=== PATIENT | male | born 1975 | race African-American/Black ===

== ENCOUNTER 2017-08-11 03:34 | Inpatient (IN) ==
[2017-08-11] MEDS ORDERED: ALBUTEROL 2.5 MG/3 ML NEB RESP TX STA (04:28)
[2017-08-11] MEDS ORDERED: LABETALOL 20 MG/4 ML SYRINGE IV STA (04:28)
[2017-08-11] MEDS ORDERED: methylPREDNISolone SOD SUC 125 MG/2 ML VIAL IV STA (04:28)
[2017-08-11] MEDS ORDERED: LABETALOL 20 MG/4 ML SYRINGE IV ONE (04:52)
[2017-08-11] MEDS ORDERED: methylPREDNISolone SOD SUC 125 MG/2 ML VIAL ONE (04:53)
[2017-08-11 05:10] LABS: Basophils % 0.6 % (0.0-0.8); Eosinophils # 0.1 10*3/uL (0.0-0.87); Hemoglobin 14.8 GM/DL (14.0-18.0); Immature Granulocytes % 0.4 %; Immature Granulocytes Absolute 0.02 #; Lymphocytes # 1.9 10*3/uL (1.4-4.0); Lymphocytes % 36.9 % (21.2-54.2); Mean Corpuscular HGB Conc 34.4 GM/DL (32-36); Mean Corpuscular Hemoglobin 30 PG (27-34); Mean Corpuscular Volume 86.5 FL (87-102); Mean Platelet Volume 8.8 FL (9.6-12.0); Monocytes # 0.7 10*3/uL (0.11-0.8); Monocytes % 13.4 % (1.7-12.7); Neutrophils # 2.5 10*3/uL (1.4-7.4); Neutrophils % 47.7 % (38.7-73.9); Platelet Count 210 T/CUMM (130-400); Red Blood Count 4.97 MC/CUMM (3.8-5.5); Red Cell Distribution Width 15.4 % (9.3-17.3); White Blood Count 5.2 T/CUMM (4-12)
[2017-08-11 05:31] LABS: Albumin 2.9 G/DL (3.4-5.0); Bilirubin,Total 1.3 MG/DL (0.2-1.0); Calcium 8.5 MG/DL (8.5-10.1); Magnesium 1.8 MG/DL (1.8-2.4); Potassium 2.9 MMOL/L (3.5-5.1); Total Protein 7.6 G/DL (6.4-8.3)
[2017-08-11 05:39] LABS: Hypochromasia 1+
[2017-08-11 05:40] LABS: Platelet Estimate Adequate
[2017-08-11] MEDS ORDERED: guaiFENesin/DM ER 600-30 MG TABLET PO PRN (06:12)
[2017-08-11] MEDS ORDERED: ACETAMINOPHEN 325 MG TABLET PO PRN (06:12)
[2017-08-11] MEDS ORDERED: ZALEPLON 5 MG CAPSULE PO PRN (06:12)
[2017-08-11] MEDS ORDERED: ONDANSETRON 4 MG/2 ML VIAL IV PRN (06:12)
[2017-08-11] MEDS ORDERED: ALBUTEROL 2.5 MG/3 ML NEB RESP TX PRN (06:19)
[2017-08-11 07:56] LABS: Hepatitis A Ab IgM Quant 0.07 Index; Hepatitis A Ab IgM Result Negative (Negative); Hepatitis B Core IgM Quant 0.16 Index; Hepatitis B Core IgM Result Negative (Negative); Hepatitis B Surface Ag Quant < 0.10 Index; Hepatitis B Surface Ag Result Negative (Negative); Hepatitis C Virus Ab Quant 0.08 Index; Hepatitis C Virus Ab Result Negative (Negative)
[2017-08-11] MEDS: ENOXAPARIN 40 MG/0.4 ML SYRINGE SUBCUT SCH (08:26)
[2017-08-11] MEDS: metOLazone 5 MG TABLET PO SCH (08:26)
[2017-08-11] MEDS: CHLORTHALIDONE 25 MG TABLET PO SCH (08:26)
[2017-08-11] MEDS: POTASSIUM CHLORIDE 20 MEQ TABLET PO SCH ×2 (08:26→21:24)
[2017-08-11] MEDS: PANTOPRAZOLE 40 MG TABLET PO SCH (08:26)
[2017-08-11] MEDS: BUDESONIDE/FORMOTEROL 160-4.5 INHALER 6 GM INH SCH ×2 (08:29→21:25)
[2017-08-11] MEDS: ATENOLOL 100 MG TABLET PO SCH (08:29)
[2017-08-11] MEDS: ALBUTEROL/IPRATROPIUM 3 ML NEB RESP TX SCH ×3 (09:11→20:41)
[2017-08-11] MEDS ORDERED: POTASSIUM CHLORIDE INJ 60 MEQ in SODIUM CHLORIDE 0.9% 1,000 ML IV ONE (09:30)
[2017-08-11] MEDS: methylPREDNISolone SOD SUC 125 MG/2 ML VIAL IV SCH ×3 (10:57→23:00)
[2017-08-11 12:17] LABS: Apearance,Urine Clear (Clear); Bilirubin,Urine Negative (Negative); Blood, Urine Small mg/dL (Negative); Glucose,Urine (UA) Negative (Negative); Ketones,Urine 100 mg/dL (Negative); Nitrite,Urine Negative (Negative); Protein,Urine 30 MG/DL; Urine Color Yellow (Yellow); Urine Specific Gravity 1.005 (1.001-1.035); Urine Urobilinogen 0.2 EU/DL (0.2-1.0)
[2017-08-11 12:29] LABS: RBC,Urine 0-5 /HPF (0-4); Squamous Epithelial Cell,Urine Rare /HPF (0-10)
[2017-08-12] MEDS: ALBUTEROL/IPRATROPIUM 3 ML NEB RESP TX SCH ×2 (00:26→07:38)
[2017-08-12] MEDS: methylPREDNISolone SOD SUC 125 MG/2 ML VIAL IV SCH ×2 (04:56→10:40)
[2017-08-12 05:14] VITALS: BP 116/65
[2017-08-12 06:31] LABS: Basophils % 0.1 % (0.0-0.8); Hematocrit 44.1 VOL% (42.0-52.0); Hemoglobin 15.2 GM/DL (14.0-18.0); Immature Granulocytes % 0.7 %; Immature Granulocytes Absolute 0.05 #; Lymphocytes # 1.4 10*3/uL (1.4-4.0); Lymphocytes % 17.9 % (21.2-54.2); Mean Corpuscular HGB Conc 34.5 GM/DL (32-36); Mean Corpuscular Hemoglobin 30 PG (27-34); Mean Platelet Volume 9.6 FL (9.6-12.0); Monocytes # 0.4 10*3/uL (0.11-0.8); Monocytes % 5.3 % (1.7-12.7); Neutrophils # 5.7 10*3/uL (1.4-7.4); Platelet Count 297 T/CUMM (130-400); Red Blood Count 5.01 MC/CUMM (3.8-5.5); Red Cell Distribution Width 15.4 % (9.3-17.3); White Blood Count 7.6 T/CUMM (4-12)
[2017-08-12 07:20] LABS: Albumin 3.2 G/DL (3.4-5.0); Bilirubin,Total 1.4 MG/DL (0.2-1.0); Calcium 9.3 MG/DL (8.5-10.1); Potassium 3.7 MMOL/L (3.5-5.1); Total Protein 7.9 G/DL (6.4-8.3)
[2017-08-12] MEDS: POTASSIUM CHLORIDE 20 MEQ TABLET PO SCH (10:39)
[2017-08-12] MEDS: metOLazone 5 MG TABLET PO SCH (10:39)
[2017-08-12] MEDS: ENOXAPARIN 40 MG/0.4 ML SYRINGE SUBCUT SCH (10:40)
[2017-08-12] MEDS: ATENOLOL 100 MG TABLET PO SCH (10:40)
[2017-08-12] MEDS: BUDESONIDE/FORMOTEROL 160-4.5 INHALER 6 GM INH SCH (10:40)
[2017-08-12] MEDS: CHLORTHALIDONE 25 MG TABLET PO SCH (10:40)
[2017-08-12] MEDS: PANTOPRAZOLE 40 MG TABLET PO SCH (10:40)
== END 2017-08-12 11:45 | disposition home or self-care (01) | DRG 141 ==
LOC: EDBD → EDUNIT# → N.ED 03:34 → N.EDINP 06:15 → N.2E 06:46
PROVIDERS: ADMIT Family Medicine; ATTEND Family Medicine

== ENCOUNTER 2019-06-28 09:42 | Observation (INO) ==
[2019-06-28] MEDS ORDERED: ASPIRIN 325 MG TABLET PO STA (10:19)
[2019-06-28 10:26] LABS: Basophils # 0.1 10*3/uL (0.0-0.2); Basophils % 0.7 % (0.0-0.8); Eosinophils # 0.4 10*3/uL (0.0-0.87); Eosinophils % 5.1 % (0.00-10.9); Hemoglobin 13.2 GM/DL (14.0-18.0); Immature Granulocytes % 1.2 %; Immature Granulocytes Absolute 0.08 #; Lymphocytes # 2.2 10*3/uL (1.4-4.0); Lymphocytes % 32.1 % (21.2-54.2); Mean Corpuscular HGB Conc 33.8 GM/DL (32-36); Mean Corpuscular Volume 93.8 FL (87-102); Mean Platelet Volume 8.8 FL (9.6-12.0); Monocytes % 8.5 % (1.7-12.7); Neutrophils % 52.4 % (38.7-73.9); Platelet Count 213 T/CUMM (130-400); Red Blood Count 4.16 MC/CUMM (3.8-5.5); Red Cell Distribution Width 16.3 % (9.3-17.3); White Blood Count 6.8 T/CUMM (4-12)
[2019-06-28 11:10] LABS: Albumin 2.8 G/DL (3.4-5.0); Bilirubin,Total 0.9 MG/DL (0.2-1.0); Calcium 8.7 MG/DL (8.5-10.1); Osmolality,Calculated 273.5 MOS/KG (273-304); Total Protein 8.6 G/DL (6.4-8.3)
[2019-06-28] MEDS ORDERED: ENOXAPARIN 30 MG/0.3 ML SYRINGE SUBCUT STA (11:30)
[2019-06-28] MEDS ORDERED: ONDANSETRON 4 MG/2 ML VIAL IV PRN (12:05)
[2019-06-28] MEDS ORDERED: DEXTROSE 50% 25 GM/50 ML VIAL IV PRN (12:05)
[2019-06-28] MEDS ORDERED: DOCUSATE SODIUM 100 MG CAPSULE PO PRN (12:05)
[2019-06-28] MEDS ORDERED: ACETAMINOPHEN 325 MG TABLET PO PRN (12:05)
[2019-06-28] MEDS ORDERED: GLUCAGON 1 MG VIAL IM PRN (12:05)
[2019-06-28] MEDS ORDERED: BUDESONIDE/FORMOTEROL 160-4.5 INHALER 6 GM INH PRN (12:42)
[2019-06-28] MEDS ORDERED: ALBUTEROL/IPRATROPIUM 3 ML NEB RESP TX PRN (12:43)
[2019-06-28] MEDS ORDERED: NITROGLYCERIN SL 0.4 MG TABLET SL PRN (12:57)
[2019-06-28] MEDS ORDERED: FUROSEMIDE 100 MG/10 ML VIAL IV ONE (12:59)
[2019-06-28] MEDS: METOPROLOL TARTRATE 25 MG TABLET PO SCH ×2 (13:15→20:31)
[2019-06-28 15:05] LABS: Risk Ratio 3.55; Thyroid Stimulating Hormone 1.93 uIU/ml (0.358-3.74); VLDL CHOLESTEROL 19.8 MG/DL
[2019-06-28] MEDS ORDERED: FUROSEMIDE 40 MG/4 ML VIAL IV SCH (16:00)
[2019-06-28] MEDS: INSULIN LISPRO 100 UNIT/ML SUBCUT SCH (17:34)
[2019-06-28] MEDS: NICOTINE 21 MG/24 HR PATCH TRANSDERM SCH (17:37)
[2019-06-28] MEDS: GABAPENTIN 300 MG CAPSULE PO SCH ×2 (17:37→20:31)
[2019-06-29] MEDS: INSULIN LISPRO 100 UNIT/ML SUBCUT SCH ×2 (01:00→07:21)
[2019-06-29 05:56] LABS: Basophils # 0.1 10*3/uL (0.0-0.2); Basophils % 0.6 % (0.0-0.8); Eosinophils # 0.3 10*3/uL (0.0-0.87); Eosinophils % 3.8 % (0.00-10.9); Hematocrit 42.9 VOL% (42.0-52.0); Hemoglobin 14.5 GM/DL (14.0-18.0); Immature Granulocytes % 0.8 %; Immature Granulocytes Absolute 0.06 #; Lymphocytes # 1.7 10*3/uL (1.4-4.0); Lymphocytes % 20.9 % (21.2-54.2); Mean Corpuscular HGB Conc 33.8 GM/DL (32-36); Mean Corpuscular Volume 91.9 FL (87-102); Mean Platelet Volume 8.6 FL (9.6-12.0); Monocytes % 10.1 % (1.7-12.7); Neutrophils % 63.8 % (38.7-73.9); Platelet Count 267 T/CUMM (130-400); Red Blood Count 4.67 MC/CUMM (3.8-5.5); Red Cell Distribution Width 16.5 % (9.3-17.3)
[2019-06-29 06:19] LABS: Calcium 8.7 MG/DL (8.5-10.1); Osmolality,Calculated 273.5 MOS/KG (273-304)
[2019-06-29 08:03] VITALS: BP 133/64
[2019-06-29] MEDS: NICOTINE 21 MG/24 HR PATCH TRANSDERM SCH (08:28)
[2019-06-29] MEDS: METOPROLOL TARTRATE 25 MG TABLET PO SCH (08:30)
[2019-06-29] MEDS: GABAPENTIN 300 MG CAPSULE PO SCH (08:31)
[2019-06-29] MEDS ORDERED: PANTOPRAZOLE 40 MG TABLET PO SCH (09:00)
[2019-06-29] MEDS ORDERED: ENOXAPARIN 40 MG/0.4 ML SYRINGE SUBCUT SCH (09:00)
[2019-06-29] MEDS ORDERED: LISINOPRIL 10 MG TABLET PO SCH ×2 (09:00)
[2019-06-29] MEDS ORDERED: ASPIRIN CHEW 81 MG TABLET PO SCH (09:00)
[2019-06-29] MEDS ORDERED: FUROSEMIDE 40 MG/4 ML VIAL IV SCH (09:00)
== END 2019-06-29 12:15 | disposition home or self-care (01) ==
LOC: EDUNIT# → EDBD → N.ED 09:42 → N.EDINP 09:42 → SUATTDRO 12:03 → N.4E 15:15
PROVIDERS: ADMIT Internal Medicine Nephrology; ATTEND Internal Medicine

== ENCOUNTER 2020-09-05 20:26 | Inpatient (IN) ==
[2020-09-05 22:05] LABS: Basophils % 0.3 % (0.0-0.8); Eosinophils # 0.3 10*3/uL (0.0-0.87); Eosinophils % 3.2 % (0.00-10.9); Hematocrit 33.3 VOL% (42.0-52.0); Hemoglobin 11.2 GM/DL (14.0-18.0); Immature Granulocytes % 1.3 %; Lymphocytes # 1.9 10*3/uL (1.4-4.0); Lymphocytes % 24.4 % (21.2-54.2); Mean Corpuscular HGB Conc 33.6 GM/DL (32-36); Mean Corpuscular Volume 98.5 FL (87-102); Mean Platelet Volume 8.4 FL (9.6-12.0); Monocytes % 9.3 % (1.7-12.7); NRBC # 0.03 10*3/uL; Neutrophils % 61.5 % (38.7-73.9); Platelet Count 285 T/CUMM (130-400); Red Blood Count 3.38 MC/CUMM (3.8-5.5); Red Cell Distribution Width 19.5 % (9.3-17.3); White Blood Count 7.8 T/CUMM (4-12)
[2020-09-05 22:30] LABS: Troponin I < 0.015 NG/ML (0.00-0.045)
[2020-09-05 22:38] LABS: Albumin 2.7 G/DL (3.4-5.0); Bilirubin,Total 1.6 MG/DL (0.2-1.0); Calcium 8.4 MG/DL (8.5-10.1); Osmolality,Calculated 272.7 MOS/KG (273-304); Potassium 3.2 MMOL/L (3.5-5.1); Total Protein 7.8 G/DL (6.4-8.9)
[2020-09-05] MEDS ORDERED: SODIUM CHLORIDE 0.9% 1,000 ML IV STA (22:43)
[2020-09-05] MEDS ORDERED: POTASSIUM CHLORIDE 20 MEQ TABLET PO STA (22:44)
[2020-09-05] MEDS ORDERED: MAGNESIUM SULF RIDER 2 GM in PREMIX 1 EACH IV STA (22:44)
[2020-09-05] MEDS ORDERED: VANCOMYCIN INJ 1,000 MG in SODIUM CHLORIDE 0.9% 250 ML IV STA (22:53)
[2020-09-05] MEDS ORDERED: PIPERACILLIN/TAZOBACTAM 3,375 MG in SODIUM CHLORIDE 0.9% 100 ML IV STA (22:53)
[2020-09-05] MEDS ORDERED: SODIUM CHLORIDE 0.9% 1,000 ML IV ONE (23:12)
[2020-09-05] MEDS ORDERED: SIMETHICONE CHEW 125 MG TABLET PO PRN (23:13)
[2020-09-05] MEDS ORDERED: ONDANSETRON 4 MG/2 ML VIAL IV PRN (23:13)
[2020-09-05] MEDS ORDERED: guaiFENesin/DM ER 600-30 MG TABLET PO PRN (23:13)
[2020-09-05] MEDS ORDERED: GLUCAGON 1 MG VIAL IM PRN ×2 (23:13)
[2020-09-05] MEDS ORDERED: ALUMINUM/MAGNES/SIMETH MAX STR 30 ML UDCUP PO PRN (23:13)
[2020-09-05] MEDS ORDERED: DEXTROSE 50% 25 GM/50 ML VIAL IV PRN ×2 (23:13)
[2020-09-05] MEDS ORDERED: diphenhydrAMINE CAP 25 MG CAPSULE PO PRN (23:13)
[2020-09-05] MEDS ORDERED: BISACODYL 5 MG TABLET PO PRN (23:13)
[2020-09-05] MEDS ORDERED: ACETAMINOPHEN 325 MG TABLET PO PRN (23:13)
[2020-09-05] MEDS ORDERED: ZALEPLON 5 MG CAPSULE PO PRN (23:13)
[2020-09-05] MEDS ORDERED: hydrALAZINE 20 MG/1 ML VIAL IV PRN (23:13)
[2020-09-05] MEDS ORDERED: BUDESONIDE/FORMOTEROL 160-4.5 INHALER 6 GM INH PRN (23:16)
[2020-09-05] MEDS ORDERED: ALBUTEROL/IPRATROPIUM 3 ML NEB RESP TX PRN (23:16)
[2020-09-05] MEDS ORDERED: SODIUM CHLORIDE 0.9% 1,000 ML IV SCH (23:30)
[2020-09-06] MEDS: CLINDAMYCIN INJ 600 MG in PREMIX 1 EACH IV SCH ×2 (02:11→11:28)
[2020-09-06] MEDS: MORPHINE 4 MG/1 ML VIAL IV PRN (02:13)
[2020-09-06 02:56] LABS: Band Neutrophils 3 % (0-10); Eosinophils 4 % (0-10); Lymphocytes 23 % (20-55); Segmented Neutrophils 63 % (50-85); Total Cells Counted 100
[2020-09-06 02:57] LABS: Platelet Estimate Normal
[2020-09-06 04:09] LABS: Basophils % 0.6 % (0.0-0.8); Eosinophils # 0.2 10*3/uL (0.0-0.87); Eosinophils % 3.7 % (0.00-10.9); Hematocrit 31.7 VOL% (42.0-52.0); Immature Granulocytes % 1.5 %; Lymphocytes # 1.7 10*3/uL (1.4-4.0); Lymphocytes % 25.3 % (21.2-54.2); Mean Corpuscular HGB Conc 34.7 GM/DL (32-36); Mean Corpuscular Volume 96.4 FL (87-102); Mean Platelet Volume 8.6 FL (9.6-12.0); Monocytes % 9.3 % (1.7-12.7); Neutrophils % 59.6 % (38.7-73.9); Platelet Count 263 T/CUMM (130-400); Red Blood Count 3.29 MC/CUMM (3.8-5.5); Red Cell Distribution Width 19.5 % (9.3-17.3); White Blood Count 6.5 T/CUMM (4-12)
[2020-09-06 04:28] LABS: Albumin 2.5 G/DL (3.4-5.0); Calcium 8.2 MG/DL (8.5-10.1); Osmolality,Calculated 265.2 MOS/KG (273-304); Potassium 2.8 MMOL/L (3.5-5.1); Total Protein 6.9 G/DL (6.4-8.9)
[2020-09-06 04:37] LABS: Atypical Lymphocytes Few; Hypochromasia 1+; Lymphocytes 27 % (20-55); Segmented Neutrophils 66 % (50-85); Target Cells Few; Total Cells Counted 100
[2020-09-06 04:38] LABS: Macrocytosis 1+
[2020-09-06] MEDS: VANCOMYCIN INJ 2,000 MG in SODIUM CHLORIDE 0.9% 500 ML IV SCH ×2 (04:57→16:44)
[2020-09-06] MEDS ORDERED: POTASSIUM CHLORIDE RIDER 10 MEQ in PREMIX 1 EACH IV PRN (06:14)
[2020-09-06] MEDS ORDERED: MAGNESIUM SULF RIDER 2 GM in PREMIX 1 EACH IV PRN (06:15)
[2020-09-06] MEDS ORDERED: MAGNESIUM SULF RIDER 4 GM in PREMIX 1 EACH IV PRN (06:15)
[2020-09-06] MEDS ORDERED: ENOXAPARIN 40 MG/0.4 ML SYRINGE SUBCUT SCH (09:00)
[2020-09-06] MEDS: METOPROLOL SUCCINATE XL 100 MG TABLET PO SCH (09:40)
[2020-09-06] MEDS: ASPIRIN CHEW 81 MG TABLET PO SCH (09:40)
[2020-09-06] MEDS: lisinopriL 5 MG TABLET PO SCH (09:40)
[2020-09-06] MEDS: INSULIN LISPRO 100 UNIT/ML SUBCUT SCH ×2 (09:57→11:29)
[2020-09-06] MEDS: POTASSIUM CHLORIDE 20 MEQ TABLET PO SCH ×3 (11:02→14:17)
[2020-09-06] MEDS: NICOTINE 21 MG/24 HR PATCH TRANSDERM SCH (11:08)
[2020-09-06] MEDS: cefTRIAXone 2,000 MG in SYRINGE 1 EACH IV SCH (12:35)
[2020-09-06] MEDS: ENOXAPARIN 40 MG/0.4 ML SYRINGE SUBCUT SCH (21:28)
[2020-09-07] MEDS: VANCOMYCIN INJ 2,000 MG in SODIUM CHLORIDE 0.9% 500 ML IV SCH ×2 (03:25→15:25)
[2020-09-07] MEDS: MORPHINE 4 MG/1 ML VIAL IV PRN (05:46)
[2020-09-07] MEDS: ASPIRIN CHEW 81 MG TABLET PO SCH (08:46)
[2020-09-07] MEDS: METOPROLOL SUCCINATE XL 100 MG TABLET PO SCH (08:47)
[2020-09-07] MEDS: NICOTINE 21 MG/24 HR PATCH TRANSDERM SCH (08:47)
[2020-09-07] MEDS: lisinopriL 5 MG TABLET PO SCH (08:47)
[2020-09-07] MEDS: ENOXAPARIN 40 MG/0.4 ML SYRINGE SUBCUT SCH (08:49)
[2020-09-07 11:46] VITALS: BP 100/57
[2020-09-07] MEDS: cefTRIAXone 2,000 MG in SYRINGE 1 EACH IV SCH (12:20)
== END 2020-09-07 17:25 | disposition home health service (06) | DRG 383 ==
LOC: EDBD → EDUNIT# → N.ED 20:26 → N.EDINP 23:13 → SUATTDRO 23:13 → N.3E 09-06 01:18
PROVIDERS: ADMIT Internal Medicine; ATTEND Internal Medicine

== ENCOUNTER 2021-03-26 04:33 | Inpatient (IN) ==
[2021-03-26] MEDS ORDERED: NITROGLYCERIN 2% OINT 1 INCH/GM PACK TOP STA (04:57)
[2021-03-26] MEDS ORDERED: ASPIRIN 325 MG TABLET PO STA (04:57)
[2021-03-26] MEDS ORDERED: ALUM/MAG/SIMETH/LIDO VISC 1:1 30 ML BOTTLE PO STA (04:57)
[2021-03-26] MEDS ORDERED: ONDANSETRON 4 MG/2 ML VIAL IV STA (04:57)
[2021-03-26 06:00] LABS: Basophils # 0.1 10*3/uL (0.0-0.2); Eosinophils # 0.4 10*3/uL (0.0-0.87); Eosinophils % 6.3 % (0.00-10.9); Hematocrit 31.9 VOL% (42.0-52.0); Hemoglobin 10.8 GM/DL (14.0-18.0); Immature Granulocytes Absolute 0.06 #; Lymphocytes # 2.2 10*3/uL (1.4-4.0); Mean Corpuscular HGB Conc 33.9 GM/DL (32-36); Mean Corpuscular Volume 108.9 FL (87-102); Mean Platelet Volume 8.2 FL (9.6-12.0); Monocytes % 8.8 % (1.7-12.7); Neutrophils % 46.9 % (38.7-73.9); Platelet Count 298 T/CUMM (130-400); Red Blood Count 2.93 MC/CUMM (3.8-5.5); Red Cell Distribution Width 21.9 % (9.3-17.3); White Blood Count 6.2 T/CUMM (4-12)
[2021-03-26 06:21] LABS: Eosinophils 6 % (0-10); Hypochromasia Slight; Lymphocytes 33 % (20-55); Macrocytosis Slight; Platelet Estimate Adequate; Segmented Neutrophils 56 % (50-85); Total Cells Counted 100
[2021-03-26 06:22] LABS: Polychromasia Slight
[2021-03-26 06:23] LABS: Barbiturates Screen,Urine Negative (Negative); Benzodiazepines Screen,Urine Negative (Negative); Cannabinoid Screen,Urine Negative (Negative); Opiate Screen,Urine Negative (Negative); Phencyclidine Screen,Urine Negative (Negative)
[2021-03-26 06:56] LABS: Albumin 2.6 G/DL (3.4-5.0); Bilirubin,Total 0.9 MG/DL (0.20-1.00); Calcium 8.5 MG/DL (8.5-10.1); Osmolality,Calculated 274.4 MOS/KG (273-304); Potassium 3.5 MMOL/L (3.5-5.1); Total Protein 7.8 G/DL (6.4-8.2)
[2021-03-26] MEDS ORDERED: ONDANSETRON 4 MG/2 ML VIAL IV PRN (09:42)
[2021-03-26] MEDS ORDERED: ENOXAPARIN 40 MG/0.4 ML SYRINGE ONE (10:19)
[2021-03-26] MEDS: PANTOPRAZOLE 40 MG TABLET PO SCH (10:21)
[2021-03-26] MEDS ORDERED: ENOXAPARIN 40 MG/0.4 ML SYRINGE SUBCUT SCH (10:30)
[2021-03-26] MEDS: methylPREDNISolone SOD SUC 125 MG/2 ML VIAL IV SCH ×2 (12:38→21:12)
[2021-03-26] MEDS ORDERED: ALBUTEROL 2.5 MG/3 ML NEB RESP TX PRN (12:39)
[2021-03-26] MEDS: NICOTINE 21 MG/24 HR PATCH TRANSDERM SCH (12:41)
[2021-03-26] MEDS: APIXABAN 5 MG TABLET PO SCH ×2 (12:42→21:12)
[2021-03-27] MEDS: methylPREDNISolone SOD SUC 125 MG/2 ML VIAL IV SCH ×3 (04:05→18:34)
[2021-03-27 05:07] LABS: Basophils % 0.2 % (0.0-0.8); Hematocrit 33.1 VOL% (42.0-52.0); Hemoglobin 11.2 GM/DL (14.0-18.0); Immature Granulocytes % 0.5 %; Immature Granulocytes Absolute 0.03 #; Lymphocytes # 0.5 10*3/uL (1.4-4.0); Lymphocytes % 8.2 % (21.2-54.2); Mean Corpuscular HGB Conc 33.8 GM/DL (32-36); Mean Corpuscular Volume 106.8 FL (87-102); Mean Platelet Volume 8.4 FL (9.6-12.0); Monocytes % 1.6 % (1.7-12.7); Neutrophils % 89.5 % (38.7-73.9); Platelet Count 290 T/CUMM (130-400); Red Cell Distribution Width 20.8 % (9.3-17.3); White Blood Count 6.4 T/CUMM (4-12)
[2021-03-27 05:35] LABS: Albumin 2.4 G/DL (3.4-5.0); Bilirubin,Total 1.8 MG/DL (0.20-1.00); Calcium 8.2 MG/DL (8.5-10.1); Osmolality,Calculated 273.8 MOS/KG (273-304); Risk Ratio 3.18; Thyroid Stimulating Hormone 0.887 uIU/ml (0.358-3.74); Total Protein 7.7 G/DL (6.4-8.2); VLDL Cholesterol 15.8 MG/DL
[2021-03-27] MEDS: NICOTINE 21 MG/24 HR PATCH TRANSDERM SCH (09:05)
[2021-03-27] MEDS: PANTOPRAZOLE 40 MG TABLET PO SCH (09:05)
[2021-03-27] MEDS: APIXABAN 5 MG TABLET PO SCH ×2 (09:05→20:45)
[2021-03-27] MEDS ORDERED: DEXTROSE 50% 25 GM/50 ML VIAL IV PRN (10:27)
[2021-03-27] MEDS ORDERED: GLUCAGON 1 MG VIAL IM PRN (10:27)
[2021-03-28] MEDS: methylPREDNISolone SOD SUC 125 MG/2 ML VIAL IV SCH ×2 (03:35→11:50)
[2021-03-28 05:19] LABS: Hematocrit 31.8 VOL% (42.0-52.0); Hemoglobin 10.8 GM/DL (14.0-18.0); Immature Granulocytes % 0.5 %; Immature Granulocytes Absolute 0.04 #; Lymphocytes # 0.6 10*3/uL (1.4-4.0); Lymphocytes % 7.6 % (21.2-54.2); Mean Corpuscular Volume 108.5 FL (87-102); Mean Platelet Volume 8.8 FL (9.6-12.0); Monocytes % 5.2 % (1.7-12.7); Neutrophils % 86.7 % (38.7-73.9); Platelet Count 278 T/CUMM (130-400); Red Blood Count 2.93 MC/CUMM (3.8-5.5); Red Cell Distribution Width 19.9 % (9.3-17.3); White Blood Count 8.3 T/CUMM (4-12)
[2021-03-28 05:45] LABS: Albumin 2.5 G/DL (3.4-5.0); Bilirubin,Total 1.6 MG/DL (0.20-1.00); Calcium 8.7 MG/DL (8.5-10.1); Osmolality,Calculated 276.7 MOS/KG (273-304); Potassium 3.9 MMOL/L (3.5-5.1); Total Protein 7.6 G/DL (6.4-8.2)
[2021-03-28 08:42] LABS: Folate 1.84 NG/ML (5.38-24.0); Vitamin B12 436 PG/ML (211-911)
[2021-03-28] MEDS: NICOTINE 21 MG/24 HR PATCH TRANSDERM SCH (08:55)
[2021-03-28] MEDS: PANTOPRAZOLE 40 MG TABLET PO SCH (08:55)
[2021-03-28] MEDS: APIXABAN 5 MG TABLET PO SCH (08:55)
[2021-03-28 09:06] LABS: Basophils % 0.1 % (0.0-0.8); Hematocrit 35.8 VOL% (42.0-52.0); Hemoglobin 11.9 GM/DL (14.0-18.0); Lymphocytes # 0.7 10*3/uL (1.4-4.0); Lymphocytes % 6.5 % (21.2-54.2); Mean Corpuscular HGB Conc 33.2 GM/DL (32-36); Mean Corpuscular Volume 108.5 FL (87-102); Mean Platelet Volume 8.9 FL (9.6-12.0); Monocytes % 4.7 % (1.7-12.7); NRBC # 0.04 10*3/uL; Neutrophils % 87.7 % (38.7-73.9); Platelet Count 323 T/CUMM (130-400); Red Cell Distribution Width 19.7 % (9.3-17.3)
[2021-03-28 10:16] LABS: Sedimentation Rate-Westergren 57 MM/HR (0-15)
[2021-03-28 11:23] VITALS: BP 151/96
[2021-03-29 11:31] LABS: Hemoglobin A1 (Alkaline) 65.2 % (96.5-98.5); Hemoglobin A2 (Alkaline) 2.1 % (1.5-3.5)
[2021-03-29 11:32] LABS: Hemoglobin S (Alkaline) 32.7 %
== END 2021-03-28 15:00 | disposition home or self-care (01) | DRG 134 ==
LOC: N.ED 04:33 → N.EDINP 09:42 → N.3E 14:29
PROVIDERS: ADMIT Internal Medicine; ATTEND Internal Medicine